=== PATIENT | female | born 1960 | race Caucasian/White ===

== ENCOUNTER 2024-03-30 18:55 | Emergency (ER) | payer OTHER, SELFPAY ==
[2024-03-30 19:11] VITALS: BP 116/72
[2024-03-30 19:47] LABS: % Basophils 0.7 % (0-2); % Eosinophils 0.6 % (0-6); % Immature Granulocytes 1.3 % (0-0.5); % Lymphocytes 3.4 % (20.5-51.1); % Monocytes 9.4 % (1.7-9.3); % Neutrophils 84.6 % (42.2-75.2); Absolute Basophils 0.1 10^3/uL (0-0.2); Absolute Eosinophils 0.1 10^3/uL (0-0.7); Absolute Immature Granulocytes 0.2 10^3/uL (0-0.05); Absolute Lymphocytes 0.5 10^3/uL (1.2-3.4); Absolute Monocytes 1.3 10^3/uL (0.1-0.6); Absolute Neutrophils 11.6 10^3/uL (1.4-6.5); Hematocrit 33.1 % (37.0-47.0); Hemoglobin 11.9 g/dL (12.0-16.0); Mean Corpuscular Hgb 32.2 pg (27.0-31.0); Mean Corpuscular Volume 89.5 fL (81.0-99.0); Mean Platelet Volume 8.5 fL (7.4-10.4); Nucleated Red Blood Cells % 0 %; Platelet Count 283 10^3/uL (130-400); Red Cell Dist. Width 13.3 % (11.5-14.5); White Blood Cell Count 13.8 10^3/uL (4.8-10.8)
[2024-03-30 20:07] LABS: Urine Albumin 1+ (Neg - Trace); Urine Bilirubin Negative (Negative); Urine Character Clear (Clear); Urine Color Yellow; Urine Glucose Negative (Negative); Urine Ketone Negative (Negative); Urine Leukocyte Negative (Negative); Urine Nitrite Negative (Negative); Urine Occult Blood 1+ (Negative); Urine Specific Gravity 1.015 (<1.030); Urine Urobilinogen Negative (Neg - 1+)
[2024-03-30 20:20] LABS: Urine Granular Cast 0-2 /LPF (0); Urine Hyaline Cast 0-2 /LPF (0-2); Urine Mucus Moderate; Urine Red Blood Cell 0-2 /HPF (0-2); Urine Squamous Cell 16-20 /LPF (Few)
[2024-03-30 20:30] LABS: ALT (SGPT) 723 U/L (0-35); AST (SGOT) 531 U/L (14-36); Albumin 3.7 g/dl (3.5-5.0); Alkaline Phosphatase 276 U/L (38-126); Blood Urea Nitrogen 13 mg/dl (7-17); Calcium 8.9 mg/dl (8.4-10.2); Carbon Dioxide 24 mmol/L (22-30); Chloride 99 mmol/L (98-107); Glucose 146 mg/dl (70-99); Potassium 3.2 mmol/L (3.5-5.1); Sodium 136 mmol/L (135-145); Total Bilirubin 0.4 mg/dl (0.2-1.3); Total Protein 6.5 g/dl (6.3-8.2); eGFR > 60.00
[2024-03-30 21:37] VITALS: BMI 21.1
--- NOTE | 2024-03-30 21:51 | ED.GENMED ---
History of Present Illness
General
Chief Complaint: Fever
Source: patient
Time Seen by Provider: 03/30/24 21:25
History of Present Illness
History of Present Illness:
63-year-old female presents to the emergency room for evaluation of fever, URI symptoms. Patient began feeling unwell about 2 weeks ago. She had a runny nose, headache, congestion. She was seen by her primary care doctor and had a negative COVID
test. She was prescribed a course of steroids which she completed but has not felt much better. Temperature today was 101. Patient denies any nausea or vomiting. She does have some pain in her right flank which she attributed to pulling a muscle
from coughing. She does not have any actual abdominal pain.
Past History
Past History
ED Past Medical History: None
ED Past Surgical History:
Social History
Tobacco: Smoker
Phy Exam
Physical Exam
Physical Exam:
General: Awake, Alert, Oriented X3. No acute distress.
Vitals: unremarkable
Head: Atraumatic
Eyes: Pupils equal, EOMI
Throat: Airway intact, no exudates
Neck: Trachea midline
Lungs: Clear and equal b/l
Heart: Regular rate, no murmurs
Abd: Soft, Nontender, No pulsatile mass
Neuro: Nonfocal
Skin: Warm, dry, no rash
Extremities: pulses equal b/l, no edema
Sepsis
Sepsis Screening
Sepsis Assessment: Sepsis Ruled Out
Sepsis Screen
Sepsis Screen: Sepsis Ruled Out
Date: 03/31/24
Time: 01:36
Course
Orders/Labs/Results
Orders:
Orders
03/30/24 19:23
Pulse Ox/cont/shift [RESP] Urgent
Quantity: 1
Special Instructions: CONTINUOUS
03/30/24 19:39
Complete Blood Count/With Diff Urgent
Comprehensive Metabolic Panel Urgent
Lipase Urgent
Comment: ADD ON
Urinalysis Reflex To Culture Urgent
Date Specimen was Collected: 03/30/24
Time Specimen was Collected: 19:24
Urine Microscopic Reflex Cult Urgent
03/30/24 21:48
US Abdomen Complete/Upper Urgent
Comment:
Reason For Exam: fever, elevated lft's
03/30/24 21:49
CR Chest - 2 Views Urgent
Comment:
Reason For Exam: fever, cough
03/30/24 21:53
Lactic Acid Q4H
Comment: ON ICE, CANCEL 2ND ORDER IF FIRST LACTIC ACID LEVEL <2
03/30/24 21:54
Add On- LAB Urgent
Tests Added?: lipase
03/31/24 00:40
Azithromycin 500 mg/250 ml [Zithromax Infusion] 500 mg in 250 ml IV NOW
CefTRIAXone [Rocephin] 1,000 mg IV NOW STA
03/31/24 00:45
LevoFLOXacin [Levaquin] 500 mg PO NOW STA
Abnormal Lab Results
03/30/24
19:39
WBC 13.8 H 10^3/uL
(4.8-10.8)
RBC 3.70 L 10^6/uL
(4.20-5.40)
Hgb 11.9 L g/dL
(12.0-16.0)
Hct 33.1 L %
(37.0-47.0)
MCH 32.2 H pg
(27.0-31.0)
Abs Immat Gran (auto) 0.2 H 10^3/uL
(0-0.05)
Absolute Neuts (auto) 11.6 H 10^3/uL
(1.4-6.5)
Absolute Lymphs (auto) 0.5 L 10^3/uL
(1.2-3.4)
Absolute Monos (auto) 1.3 H 10^3/uL
(0.1-0.6)
Immature Gran % 1.3 H %
(0-0.5)
Neutrophils % 84.6 H %
(42.2-75.2)
Lymphocytes % 3.4 L %
(20.5-51.1)
Monocytes % 9.4 H %
(1.7-9.3)
Potassium 3.2 L mmol/L
(3.5-5.1)
Glucose 146 H mg/dl
(70-99)
AST 531 H* U/L
(14-36)
ALT 723 H* U/L
(0-35)
Alkaline Phosphatase 276 H U/L
(38-126)
Ur Occult Blood Reflex 1+ A
(Negative)
Urine Albumin (Reflex) 1+ A
(Neg - Trace)
03/30/24 19:39
03/30/24 19:39
Vital Signs
Initial and Last Documented VS:
Initial Vital Signs
Temp Pulse Resp BP Pulse Ox
100.8 F H 94 24 116/72 91
03/30/24 19:11 03/30/24 19:11 03/30/24 19:11 03/30/24 19:11 03/30/24 19:11
Last Documented Vital Signs
Temp Pulse Resp BP Pulse Ox
100.8 F H 78 16 124/73 94
03/30/24 19:11 03/30/24 21:52 03/30/24 21:52 03/31/24 00:00 03/31/24 00:45
MDM/Problems Addressed
Differential Diagnosis Includes:
Viral illness with transaminitis, cholecystitis, choledocholithiasis, pneumonia
MDM/Problems Addressed:
Patient presents with fever, cough. All of her subjective symptoms are concentrated on the respiratory system. She has no abdominal pain nausea or vomiting. LFTs are elevated and an ultrasound was obtained. Ultrasound does not show any evidence
of ductal dilatation, gallstones or gallbladder inflammation. Suspect her transaminitis is related to her respiratory infection. Chest x-ray does show a right lower lobe infiltrate. Will cover with antibiotics though it may be viral. Patient is
breathing comfortably and not requiring supplemental oxygen. She is tolerating oral intake. She would very much like to be treated as an outpatient. 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
emergency room. She took a course of Zithromax without improvement so we will change antibiotics to Levaquin. She understands to call her primary care doctor if she develops any attempted irritation or pain.
Chronic conditions affecting care: Cancer (Rectal cancer)
*Radiology
Radiology exam reviewed: preliminary read by ED provider (Right lobe infiltrate) and radiology read reviewed (Vision report for ultrasound noted, coarsened liver echotexture, no gallstones, gallbladder wall normal thickness)
*Pulse Oximetry
Patient hypoxic: no
*Critical Care Note
Total Time (30-74mins, 75-104mins- exclusive of procedures): Not Applicable
ED Attending Note
-
Portions of this chart may have been created with voice recognition software.� Occasional wrong word or��sound alike� substitutions may have occurred due to the inherent limitations of voice recognition software.
Discharge Plan
Departure
Patient Disposition: Home (Routine Discharge)
Date of Disposition: 03/31/24
Time of Disposition: 00:46
Patient with high blood pressure during this ER visit?: No
Condition: Good
Discharge Problem:
Pneumonia
Instructions: Community-Acquired Pneumonia, Adult (DC)
Prescriptions:
New
levofloxacin 500 mg tablet
500 mg PO DAILY 7 Days Qty: 7 0RF
No Action
bupropion HCl 150 mg Tablet Sustained-Release 12 Hr
150 mg PO BID
rosuvastatin 10 mg Tablet
10 mg PO DAILY
Collagen Plus Vitamin C 125-740 mg Capsule
2 cap PO DAILY
azithromycin 250 mg Tablet
250 mg PO DAILY
Patient Comments:
03/30/24: Patient has 1 more tablet left in their regiment.
Theragen Tablet
1 tab PO HS
acetaminophen [Tylenol Extra Strength] 500 mg Tablet
1,000 mg PO Q6HPRN PRN (Reason: fever)
levothyroxine 75 mcg Tablet
75 mcg PO DAILY
calcium carbonate [Calcium 600] 600 mg calcium (1,500 mg) Tablet
600 mg PO DAILY
ibuprofen [Advil] 200 mg Tablet
400 mg PO Q6HPRN PRN (Reason: fever)
Mucinex DM 30-600 mg Tablet Extended Release 12 Hr
2 tab PO [id number] PRN (Reason: cough)
Visbiome 112.5 billion cell Capsule
1 cap PO DAILY
Referrals:
Marva Hand PA-C [Family Provider] -
Activity Restrictions/Additional Instructions:
Your liver function tests are elevated, likely due to infectious process. These should be rechecked in a couple weeks. Return to the ER if you are feeling more short of breath, can't keep medication down or feel like you are getting worse.
Interventions
Interventions:
*Risk Screen - Suicide Last Done: 03/30/24 19:11
*General Assessment Last Done: 03/30/24 19:11
*Neglect/Abuse Screening Last Done: 03/30/24 19:11
ED- Fall Risk Assessment Last Done: 03/30/24 19:11
*ED COVID-19 Vaccine History Last Done: 03/30/24 19:11
*Nursing Disposition Last Done: 03/31/24 01:12
ED- Neurological Assessment Last Done: 03/30/24 21:39
ED-Skin Assessment Last Done: 03/30/24 21:39
Discharge Date and Time
Discharge Date/Time: 03/31/24 01:12
Print Language: [id number]
[2024-03-30 21:52] VITALS: BP 117/71
[2024-03-30 22:00] VITALS: BP 120/74
[2024-03-30 22:13] LABS: Lactic Acid 0.8 mmol/L (0.7-2.0)
[2024-03-30 22:52] LABS: Lipase 54 U/L (23-300)
[2024-03-30 23:00] VITALS: BP 107/66
[2024-03-30 23:53] VITALS: BP 122/77
[2024-03-31] VITALS: BP 124/73
[2024-03-31] MEDS: LEVAQUIN 500 MG PO (01:05)
== END 2024-03-31 01:12 | disposition home or self-care (01) ==
LOC: EMR 18:55
PROVIDERS: Emergency Medicine; EMERGENCY PHYSICIAN Emergency Medicine; FAMILY PHYSICIAN Physician Assistant Medical
DX: J18.9 Pneumonia, unspecified organism (principal); C20 Malignant neoplasm of rectum; F17.200 Nicotine dependence, unspecified, uncomplicated
CPT/HCPCS: 99284; 71046; 76700; 80053; 81003; 81015; 83605; 83690; 85025

== ENCOUNTER 2024-05-15 06:16 | Day surgery (SDC) | payer OTHER, SELFPAY ==
[2024-05-15 09:33] VITALS: BMI 19.9
[2024-05-15 09:39] VITALS: BMI 19.9
[2024-05-15 09:40] VITALS: BP 117/72
[2024-05-15 11:10] VITALS: BP 94/63
[2024-05-15 11:25] VITALS: BP 94/66
== END 2024-05-15 11:44 | disposition home or self-care (01) ==
LOC: SDS 06:16
PROVIDERS: ATTENDING PHYSICIAN Internal Medicine Gastroenterology
DX: Z12.11 Encounter for screening for malignant neoplasm of colon (principal); Z85.038 Personal history of other malignant neoplasm of large intestine; Z85.048 Personal history of other malignant neoplasm of rectum, rectosigmoid junction, and anus; K64.9 Unspecified hemorrhoids; Z98.0 Intestinal bypass and anastomosis status; Z86.0101 Personal history of adenomatous and serrated colon polyps
CPT/HCPCS: G0105

== ENCOUNTER → 2024-10-21 12:26 | Outpatient (REF) | payer OTHER, SELFPAY ==
[2024-10-21 12:46] VITALS: BP 103/68; BP_SYST 65
[2024-10-21 13:40] VITALS: BP 106/81
== END ==
LOC: RADI 12:26
PROVIDERS: ATTENDING PHYSICIAN Internal Medicine Hematology & Oncology; FAMILY PHYSICIAN Physician Assistant Medical
DX: Z45.2 Encounter for adjustment and management of vascular access device (principal); C20 Malignant neoplasm of rectum
CPT/HCPCS: 36590; 77001